=== PATIENT | female | born 1945 | race Caucasian/White ===

== ENCOUNTER 2023-01-07 07:04 | Emergency (ER) | payer MEDICARE ==
[2023-01-07] MEDS ORDERED: Fleet Saline Enema 133 ML BOT PR SCH (10:45)
== END 2023-01-07 12:05 | disposition home or self-care (01) ==
LOC: CSHERS 07:04
DX: K59.00 Constipation, unspecified (principal); I10 Essential (primary) hypertension; E78.5 Hyperlipidemia, unspecified; Z79.899 Other long term (current) drug therapy
CPT/HCPCS: 74022

== ENCOUNTER 2023-01-14 09:55 | Observation (INO) | payer MEDICARE ==
[~2023-01-14 09:55] MED LIST: TICAGRELOR 90 MG TABLET PO SCH
[2023-01-14] MEDS ORDERED: Iopamidol 300 61% 100 ML VIAL FS ONE (10:05)
[2023-01-14] MEDS ORDERED: Lidocaine 1% MPF 2 ML VIAL ONE (10:51)
[2023-01-14] MEDS ORDERED: Nitroglycerin 50 MG/250 ML BOT 250 ML ONE (10:52)
[2023-01-14] MEDS ORDERED: Verapamil 5 MG/2 ML VIAL ONE (10:52)
[2023-01-14] MEDS ORDERED: Heparin 10,000 UNITS/ 10 ML VIAL ONE ×2 (10:52→11:57)
[2023-01-14] MEDS ORDERED: Sodium Chloride 0.9% 1,000 ML ONE (10:53)
[2023-01-14] MEDS ORDERED: Adenosine 6 MG/2 ML VIAL ONE ×2 (10:53→12:47)
[2023-01-14] MEDS ORDERED: Midazolam HCl 2 mg/2 ml Vial ONE ×2 (11:01→12:34)
[2023-01-14] MEDS ORDERED: Fentanyl 100 MCG/2 ML VIAL ONE (11:01)
[2023-01-14 11:20] VITALS: BMI 26.6
[2023-01-14] MEDS ORDERED: TICAGRELOR 90 MG TABLET ONE (11:47)
[2023-01-14] MEDS ORDERED: hydrALAZINE 20 MG/ML VIAL ONE (12:14)
[2023-01-14] MEDS ORDERED: Ondansetron ODT 4 MG TAB PO PRN (12:29)
[2023-01-14] MEDS ORDERED: Ondansetron PF 4 MG/2 ML Vial IVP PRN (12:29)
[2023-01-14] MEDS: Sodium Chloride 0.9% 1,000 ML IV SCH ×2 (15:31→20:49)
[2023-01-14] MEDS: Acetaminophen 325 MG TAB PO PRN (20:48)
[2023-01-14] MEDS ORDERED: Atorvastatin Calcium 20 MG TAB PO SCH (21:00)
[2023-01-15] MEDS: Acetaminophen 325 MG TAB PO PRN (03:05)
[2023-01-15] MEDS ORDERED: Fleet Saline Enema 133 ML BOT PR SCH (04:15)
[2023-01-15 04:21] LABS: #Eosinphils 0.1 10x3/uL (0.0-0.5); #Monocytes 0.8 10x3/uL (0.0-1.1); #Neutrophils 6.6 10x3/uL (1.5-8.4); %Basophils 0.2 % (0.0-2.0); %Eosinophils 0.6 % (0.0-6.0); %Lymphocytes 19.7 % (18.0-47.0); %Monocytes 8.6 % (0.0-10.0); %Neutrophils 70.6 % (40.0-75.0); Hemoglobin 11.7 g/dL (12.0-15.5); Mean Corpuscular HGB CONC 34.2 g/dL (32.0-36.0); Mean Corpuscular Hemoglobin 31.9 pg (27.0-33.0); Mean Corpuscular Volume 93.2 fl (81.6-98.3); Mean Platelet Volume 8.8 fl (7.4-10.4); Platelet Count 190 10x3/uL (150-450); RBC Distribution Width 12.4 % (11.5-14.5); Red Blood Cell (RBC) Count 3.67 10x6/uL (3.90-5.03); White Blood Cell (WBC) Count 9.4 10x3/uL (3.5-10.5)
[2023-01-15 04:32] LABS: ALT (SGPT) 13 U/L (8-55); AST (SGOT) 29 U/L (5-34); Albumin 3.6 g/dL (3.4-4.8); Alkaline Phosphatase 56 U/L (40-110); Anion Gap 12 mmol/L (10-20); BUN (Urea Nitrogen) 11 mg/dL (9.8-20.1); Bilirubin, Total 0.4 mg/dL (0.2-1.2); Calc. Creatinine Clearance 97 mL/min (70-130); Calcium 8.5 mg/dL (7.8-10.44); Carbon Dioxide 22 mmol/L (23-31); Chloride 107 mmol/L (98-107); Estimated GFR 92; Globulin 2.3 g/dL (2.4-3.5); Glucose 108 mg/dL (83-110); Potassium 3.5 mmol/L (3.5-5.1); Protein, Total 5.9 g/dL (5.8-8.1); Sodium 137 mmol/L (136-145)
[2023-01-15] MEDS: Sodium Chloride 0.9% 1,000 ML IV SCH ×2 (05:05→10:56)
[2023-01-15] MEDS ORDERED: TICAGRELOR 90 MG TABLET PO SCH ×2 (07:00→21:00)
[2023-01-15] MEDS ORDERED: Lisinopril 10 MG TAB PO SCH (09:00)
[2023-01-15] MEDS ORDERED: Aspirin 81 mg Enteric Coated Tablet PO SCH (09:00)
[2023-01-15] MEDS ORDERED: Aspirin 325 MG TAB PO SCH (09:00)
[2023-01-15 12:29] VITALS: BP 147/72; TEMP 98.1
[2023-01-15] MEDS ORDERED: Carvedilol 6.25 MG TAB PO SCH (17:00)
== END 2023-01-15 11:55 | disposition home or self-care (01) ==
LOC: CSHTELE 10:32
PROVIDERS: ADMIT Internal Medicine; ATTEND Internal Medicine
DX: I25.110 Atherosclerotic heart disease of native coronary artery with unstable angina pectoris (principal); I16.0 Hypertensive urgency; I10 Essential (primary) hypertension; I49.3 Ventricular premature depolarization; I47.1 Supraventricular tachycardia; E78.5 Hyperlipidemia, unspecified; Z79.82 Long term (current) use of aspirin; Z79.899 Other long term (current) drug therapy; Z88.5 Allergy status to narcotic agent; Z88.8 Allergy status to other drugs, medicaments and biological substances; Z95.818 Presence of other cardiac implants and grafts
CPT/HCPCS: 71045; 80053 ×2; 83880; 84484; 85025 ×2; 85347 ×2; 92978; 92979; 93005 ×2; 93458; 94760; 99285; C1725; C1753; C1769; C1874 ×4; C1887; C1894 ×2; C9600; J0360; 36415; 92928; 93010; 99152; 99153; J0153; J1644; J2250; J3010; J7050; Q9967

== ENCOUNTER 2023-01-18 07:39 | Emergency (ER) | payer MEDICARE ==
[2023-01-18 08:20] LABS: #Eosinphils 0.1 10x3/uL (0.0-0.5); #Monocytes 0.5 10x3/uL (0.0-1.1); #Neutrophils 4.7 10x3/uL (1.5-8.4); %Basophils 0.3 % (0.0-2.0); %Eosinophils 1.5 % (0.0-6.0); %Lymphocytes 17.7 % (18.0-47.0); %Monocytes 7.5 % (0.0-10.0); %Neutrophils 72.5 % (40.0-75.0); Hemoglobin 12.3 g/dL (12.0-15.5); Mean Corpuscular HGB CONC 34.6 g/dL (32.0-36.0); Mean Corpuscular Volume 92.7 fl (81.6-98.3); Mean Platelet Volume 8.9 fl (7.4-10.4); Platelet Count 212 10x3/uL (150-450); RBC Distribution Width 12.4 % (11.5-14.5); Red Blood Cell (RBC) Count 3.84 10x6/uL (3.90-5.03); White Blood Cell (WBC) Count 6.5 10x3/uL (3.5-10.5)
[2023-01-18] MEDS ORDERED: Mag-Al Plus 1200 MG/1200 MG/120 MG/30 ML UDCUP ONE (08:23)
[2023-01-18 08:27] LABS: ALT (SGPT) 25 U/L (8-55); AST (SGOT) 24 U/L (5-34); Albumin 4.1 g/dL (3.4-4.8); Alkaline Phosphatase 62 U/L (40-110); Anion Gap 15 mmol/L (10-20); BUN (Urea Nitrogen) 11 mg/dL (9.8-20.1); Bilirubin, Total 0.6 mg/dL (0.2-1.2); Calc. Creatinine Clearance 0 mL/min (70-130); Calcium 8.8 mg/dL (7.8-10.44); Carbon Dioxide 22 mmol/L (23-31); Chloride 109 mmol/L (98-107); Estimated GFR 91; Globulin 2.4 g/dL (2.4-3.5); Glucose 107 mg/dL (83-110); Lipase 19 U/L (8-78); Protein, Total 6.5 g/dL (5.8-8.1); Sodium 142 mmol/L (136-145)
[2023-01-18 08:52] LABS: CKMB 1.6 ng/mL (0-6.6)
[2023-01-18] MEDS ORDERED: Mineral Oil ENEMA PR SCH (10:00)
== END 2023-01-18 12:25 | disposition home or self-care (01) ==
LOC: CSHERS 07:39
DX: K59.00 Constipation, unspecified (principal); E78.5 Hyperlipidemia, unspecified; I10 Essential (primary) hypertension
CPT/HCPCS: 74022; 80053; 82553; 83690; 84484; 85025; 93005

== ENCOUNTER 2023-01-23 08:54 | Emergency (ER) | payer MEDICARE ==
[~2023-01-23 08:54] MED LIST changes: +Iopamidol 300 61% 100 ML VIAL FS ONE; -TICAGRELOR 90 MG TABLET PO SCH
[2023-01-23 10:28] LABS: #Eosinphils 0.1 10x3/uL (0.0-0.5); #Monocytes 0.6 10x3/uL (0.0-1.1); #Neutrophils 5.2 10x3/uL (1.5-8.4); %Basophils 0.4 % (0.0-2.0); %Eosinophils 1.8 % (0.0-6.0); %Lymphocytes 17.5 % (18.0-47.0); %Monocytes 8.2 % (0.0-10.0); %Neutrophils 71.8 % (40.0-75.0); Hemoglobin 12.3 g/dL (12.0-15.5); Mean Corpuscular HGB CONC 34.3 g/dL (32.0-36.0); Mean Corpuscular Hemoglobin 32.1 pg (27.0-33.0); Mean Corpuscular Volume 93.7 fl (81.6-98.3); Mean Platelet Volume 8.9 fl (7.4-10.4); Platelet Count 244 10x3/uL (150-450); RBC Distribution Width 12.3 % (11.5-14.5); Red Blood Cell (RBC) Count 3.83 10x6/uL (3.90-5.03); White Blood Cell (WBC) Count 7.2 10x3/uL (3.5-10.5)
[2023-01-23 10:31] LABS: ALT (SGPT) 16 U/L (8-55); AST (SGOT) 13 U/L (5-34); Alkaline Phosphatase 66 U/L (40-110); Anion Gap 14 mmol/L (10-20); BUN (Urea Nitrogen) 8 mg/dL (9.8-20.1); Bilirubin, Total 0.4 mg/dL (0.2-1.2); Calc. Creatinine Clearance 0 mL/min (70-130); Calcium 9.4 mg/dL (7.8-10.44); Carbon Dioxide 23 mmol/L (23-31); Chloride 108 mmol/L (98-107); Estimated GFR 91; Globulin 2.8 g/dL (2.4-3.5); Glucose 102 mg/dL (83-110); Lipase 18 U/L (8-78); Magnesium 2.2 mg/dL (1.6-2.6); Potassium 3.9 mmol/L (3.5-5.1); Protein, Total 6.8 g/dL (5.8-8.1); Sodium 141 mmol/L (136-145)
== END 2023-01-23 11:18 | disposition home or self-care (01) ==
LOC: CSHERS 08:54
DX: K86.9 Disease of pancreas, unspecified (principal); E78.5 Hyperlipidemia, unspecified; I10 Essential (primary) hypertension; Z79.82 Long term (current) use of aspirin; Z79.899 Other long term (current) drug therapy
CPT/HCPCS: 36415; 74177; 80053; 83690; 83735; 85025; 93005; Q9967

== ENCOUNTER 2023-01-30 06:20 | Emergency (ER) | payer MEDICARE ==
[2023-01-30] MEDS ORDERED: Acetaminophen 500 MG TAB ONE (07:30)
[2023-01-30] MEDS ORDERED: Aspirin Chewable 81 MG TAB ONE (07:31)
[2023-01-30 07:46] LABS: #Eosinphils 0.1 10x3/uL (0.0-0.5); #Monocytes 0.5 10x3/uL (0.0-1.1); #Neutrophils 3.8 10x3/uL (1.5-8.4); %Basophils 0.5 % (0.0-2.0); %Eosinophils 1.7 % (0.0-6.0); %Lymphocytes 24.6 % (18.0-47.0); %Monocytes 8.8 % (0.0-10.0); %Neutrophils 64.1 % (40.0-75.0); Hemoglobin 12.2 g/dL (12.0-15.5); Mean Corpuscular HGB CONC 34.4 g/dL (32.0-36.0); Mean Corpuscular Hemoglobin 32.4 pg (27.0-33.0); Mean Corpuscular Volume 94.4 fl (81.6-98.3); Mean Platelet Volume 8.8 fl (7.4-10.4); Platelet Count 238 10x3/uL (150-450); RBC Distribution Width 12.7 % (11.5-14.5); Red Blood Cell (RBC) Count 3.76 10x6/uL (3.90-5.03); White Blood Cell (WBC) Count 5.9 10x3/uL (3.5-10.5)
[2023-01-30 07:47] LABS: ALT (SGPT) 12 U/L (8-55); AST (SGOT) 10 U/L (5-34); Albumin 4.1 g/dL (3.4-4.8); Alkaline Phosphatase 61 U/L (40-110); Anion Gap 16 mmol/L (10-20); BUN (Urea Nitrogen) 7 mg/dL (9.8-20.1); Bilirubin, Total 0.5 mg/dL (0.2-1.2); Calc. Creatinine Clearance 0 mL/min (70-130); Calcium 9.2 mg/dL (7.8-10.44); Carbon Dioxide 22 mmol/L (23-31); Chloride 107 mmol/L (98-107); Estimated GFR 90; Globulin 2.3 g/dL (2.4-3.5); Glucose 107 mg/dL (83-110); Lipase 22 U/L (8-78); Potassium 4.1 mmol/L (3.5-5.1); Protein, Total 6.4 g/dL (5.8-8.1); Sodium 141 mmol/L (136-145)
[2023-01-30] MEDS ORDERED: Iopamidol 300 61% 100 ML VIAL FS ONE (09:12)
[2023-01-30 10:19] LABS: Bilirubin Neg (Negative); Blood, Urine Negative (Negative); Clarity Clear (Clear); Glucose, Urine (Dipstick) Normal (Negative); Ketone, Urine Negative (Negative); Leukocyte 100 (Negative); Nitrite Positive (Negative); Protein, Urine (Dipstick) Negative (Neg-Trace); Specific Gravity, Urine 1.015 (1.005-1.030); Urobilinogen Normal mg/dL (Less than 2)
[2023-01-30 10:30] LABS: Bacteria/HPF 2+ HPF (None Seen); RBC/HPF 0-3 HPF (0-3)
== END 2023-01-30 10:40 | disposition home or self-care (01) ==
LOC: CSHERS 06:20
DX: N39.0 Urinary tract infection, site not specified (principal); R00.2 Palpitations; E78.5 Hyperlipidemia, unspecified; I10 Essential (primary) hypertension; Z79.82 Long term (current) use of aspirin; Z79.899 Other long term (current) drug therapy
CPT/HCPCS: 71045; 74177; 80053; 81003; 81015; 83690; 84443; 84484; 85025; 93005; Q9967

== ENCOUNTER 2023-02-14 07:55 | Emergency (ER) | payer MEDICARE ==
[2023-02-14 10:51] LABS: Bilirubin Neg (Negative); Blood, Urine Negative (Negative); Clarity Clear (Clear); Glucose, Urine (Dipstick) Normal (Negative); Ketone, Urine Negative (Negative); Leukocyte Negative (Negative); Nitrite Negative (Negative); Protein, Urine (Dipstick) Negative (Neg-Trace); Specific Gravity, Urine 1.015 (1.005-1.030); Urobilinogen Normal mg/dL (Less than 2)
[2023-02-14 10:58] LABS: CAUTI Indications for Culture Pelvic or flank pain; RBC/HPF 0-3 HPF (0-3); WBC/HPF 0-3 HPF (0-3)
[2023-02-14 10:59] LABS: Bacteria/HPF Rare-Few HPF (None Seen)
[2023-02-14 11:00] LABS: Urine Culture Reflex No No
[2023-02-14] MEDS ORDERED: Fluconazole 100 MG TAB PO SCH (12:00)
== END 2023-02-14 12:10 | disposition home or self-care (01) ==
LOC: CSHERS 07:55
DX: N76.0 Acute vaginitis (principal); N81.89 Other female genital prolapse; I10 Essential (primary) hypertension; E78.5 Hyperlipidemia, unspecified; I25.10 Atherosclerotic heart disease of native coronary artery without angina pectoris
CPT/HCPCS: 74018; 81001; 87480; 87510; 87660; 93005

== ENCOUNTER 2023-03-28 17:38 | Emergency (ER) | payer MEDICARE ==
[2023-03-28 18:25] LABS: #Eosinphils 0.1 10x3/uL (0.0-0.5); #Monocytes 0.7 10x3/uL (0.0-1.1); #Neutrophils 4.8 10x3/uL (1.5-8.4); %Basophils 0.3 % (0.0-2.0); %Eosinophils 1.3 % (0.0-6.0); %Lymphocytes 25.1 % (18.0-47.0); %Monocytes 9.4 % (0.0-10.0); %Neutrophils 63.6 % (40.0-75.0); Hemoglobin 13.6 g/dL (12.0-15.5); Mean Corpuscular HGB CONC 33.8 g/dL (32.0-36.0); Mean Corpuscular Hemoglobin 32.5 pg (27.0-33.0); Mean Corpuscular Volume 95.9 fl (81.6-98.3); Mean Platelet Volume 8.5 fl (7.4-10.4); Platelet Count 236 10x3/uL (150-450); RBC Distribution Width 12.9 % (11.5-14.5); Red Blood Cell (RBC) Count 4.19 10x6/uL (3.90-5.03); White Blood Cell (WBC) Count 7.6 10x3/uL (3.5-10.5)
[2023-03-28 18:42] LABS: ALT (SGPT) 19 U/L (8-55); AST (SGOT) 14 U/L (5-34); Alkaline Phosphatase 58 U/L (40-110); Anion Gap 10 mmol/L (10-20); BUN (Urea Nitrogen) 12 mg/dL (9.8-20.1); Bilirubin, Total 0.5 mg/dL (0.2-1.2); Calc. Creatinine Clearance 0 mL/min (70-130); Calcium 8.9 mg/dL (7.8-10.44); Carbon Dioxide 29 mmol/L (23-31); Chloride 104 mmol/L (98-107); Estimated GFR 90; Globulin 2.2 g/dL (2.4-3.5); Glucose 102 mg/dL (83-110); Potassium 4.2 mmol/L (3.5-5.1); Protein, Total 6.2 g/dL (5.8-8.1); Sodium 139 mmol/L (136-145)
== END 2023-03-28 20:30 | disposition home or self-care (01) ==
LOC: CSHERS 17:38
DX: Z53.21 Procedure and treatment not carried out due to patient leaving prior to being seen by health care provider (principal)
CPT/HCPCS: 36415; 71045; 80053; 84484; 85025; 93005

== ENCOUNTER 2023-07-03 20:49 | Emergency (ER) | payer MEDICARE ==
[2023-07-03] MEDS ORDERED: Lorazepam 2 MG/ML VIAL ONE (21:57)
[2023-07-03 22:07] LABS: #Eosinphils 0.1 10x3/uL (0.0-0.5); #Monocytes 0.9 10x3/uL (0.0-1.1); #Neutrophils 7.6 10x3/uL (1.5-8.4); %Basophils 0.2 % (0.0-2.0); %Eosinophils 0.9 % (0.0-6.0); %Lymphocytes 12.4 % (18.0-47.0); %Monocytes 8.6 % (0.0-10.0); %Neutrophils 77.6 % (40.0-75.0); Hemoglobin 13.1 g/dL (12.0-15.5); Mean Corpuscular HGB CONC 33.6 g/dL (32.0-36.0); Mean Corpuscular Hemoglobin 32.4 pg (27.0-33.0); Mean Corpuscular Volume 96.5 fl (81.6-98.3); Mean Platelet Volume 8.5 fl (7.4-10.4); Platelet Count 193 10x3/uL (150-450); RBC Distribution Width 11.9 % (11.5-14.5); Red Blood Cell (RBC) Count 4.04 10x6/uL (3.90-5.03); White Blood Cell (WBC) Count 9.8 10x3/uL (3.5-10.5)
[2023-07-03] MEDS ORDERED: Lorazepam 1 MG TAB ONE (22:08)
[2023-07-03 22:13] LABS: PTT 30.5 sec (22.0-33.0); Prothrombin Time 10.9 sec (9.5-12.1)
[2023-07-03 22:15] LABS: ALT (SGPT) 45 U/L (8-55); AST (SGOT) 22 U/L (5-34); Albumin 4.1 g/dL (3.4-4.8); Alkaline Phosphatase 75 U/L (40-110); Anion Gap 16 mmol/L (10-20); BUN (Urea Nitrogen) 20 mg/dL (9.8-20.1); Bilirubin, Total 0.5 mg/dL (0.2-1.2); Calc. Creatinine Clearance 0 mL/min (70-130); Calcium 8.4 mg/dL (7.8-10.44); Carbon Dioxide 19 mmol/L (23-31); Chloride 104 mmol/L (98-107); Estimated GFR 71; Globulin 2.5 g/dL (2.4-3.5); Glucose 169 mg/dL (83-110); Magnesium 1.9 mg/dL (1.6-2.6); Protein, Total 6.6 g/dL (5.8-8.1); Sodium 135 mmol/L (136-145)
[2023-07-03 22:21] LABS: Troponin I Less than 0.010 ng/mL (< 0.028)
[2023-07-03 22:29] LABS: Bilirubin Neg (Negative); Blood, Urine 25 (Negative); Clarity Clear (Clear); Glucose, Urine (Dipstick) Normal (Negative); Ketone, Urine Negative (Negative); Leukocyte 100 (Negative); Nitrite Negative (Negative); Protein, Urine (Dipstick) Negative (Neg-Trace); Specific Gravity, Urine 1.015 (1.005-1.030); Urobilinogen Normal mg/dL (Less than 2); pH, Urine 6.5 (5.0-9.0)
[2023-07-03 22:45] LABS: Bacteria/HPF 2+ HPF (None Seen); CAUTI Indications for Culture Dysuria,urgency,freq; RBC/HPF 0-3 HPF (0-3); Squamous Epithelial 0-3 HPF (0-3)
[2023-07-03 22:47] LABS: Urine Culture Reflex Yes Yes
[2023-07-04] MEDS ORDERED: Cephalexin 250 MG CAP ONE (00:44)
== END 2023-07-04 01:02 | disposition home or self-care (01) ==
LOC: CSHERS 20:49
DX: S60.211A Contusion of right wrist, initial encounter (principal); S80.01XA Contusion of right knee, initial encounter; S00.11XA Contusion of right eyelid and periocular area, initial encounter; N39.0 Urinary tract infection, site not specified; E78.5 Hyperlipidemia, unspecified; I10 Essential (primary) hypertension; I25.10 Atherosclerotic heart disease of native coronary artery without angina pectoris; W19.XXXA Unspecified fall, initial encounter
CPT/HCPCS: 36415; 70450; 70486; 71045; 72125; 80053; 81001; 83735; 84484; 85025; 85610; 85730; 87077; 87086; 87186; 93005; J2060

== ENCOUNTER 2025-04-30 09:44 | Emergency (ER) | payer MEDICARE ==
[2025-04-30] MEDS ORDERED: HYDROcodone/Acetaminophen 5/325 mg Tablet ONE (11:41)
== END 2025-04-30 13:16 | disposition home or self-care (01) ==
LOC: CSHERS 09:44
DX: S52.515A Nondisplaced fracture of left radial styloid process, initial encounter for closed fracture (principal); I10 Essential (primary) hypertension; I25.10 Atherosclerotic heart disease of native coronary artery without angina pectoris; Z95.5 Presence of coronary angioplasty implant and graft; W01.0XXA Fall on same level from slipping, tripping and stumbling without subsequent striking against object, initial encounter; Y93.01 Activity, walking, marching and hiking
CPT/HCPCS: 29125; 99283